=== PATIENT | female | born 1935 | race Caucasian/White ===

== ENCOUNTER 2017-02-12 05:15 | Inpatient (IN) | payer MEDICARE, OTHER ==
[~2017-02-12] VITALS: Ht 152.4 cm; Wt 48.0 kg
--- NOTE | ~2017-02-12 | OR ---
PATIENT'S NAME: JESSY CELIS [facility] AGE: 81 Y [address] 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 PROCEDURE PERFORMED: 1. Right axillary artery cannulation. 2. Cardiopulmonary bypass with resection of ascending aorta and replacement with a 34 tube graft. BRIEF HISTORY: Ms. Celis is an 81-year-old white female with the above-noted diagnosis. She has been brought to the operative suite today emergently for a repair, sterilely prepped and draped in usual fashion for sternotomy. We began with our incision in the right infraclavicular space. We dissected with cautery to the level of the pectoral muscle. The pectoral muscles were in the midline. Right subclavian vein and artery were identified. The right axillary artery was circumferentially dissected and suspended with vessel loops. Heparin was given. The vessel was clamped proximally and distally with DeBakey clamps and opened; an 8 mm [place]-Ankur PTFE graft was then secured to the axillary aorta with a #6 [place]-Ankur suture. We then connected this to the arterial circuit for the cardiopulmonary bypass, this was secured, and a sternal incision was made, the sternum was divided in the midline. A hemopericardium was noted. The pericardium was opened. The fluid was evacuated. No ongoing bleeding was appreciated. The ascending aorta was markedly distended and ecchymotic. We then cannulated the right atrial appendage and proceeded on to cardiopulmonary bypass. Further dissection was carried out on bypass, circumferentially around the aorta, and a cross-clamp was applied. Another cannula had been placed in the right atrium for retrograde cardioplegia. Cardiopulmonary bypass had been initiated, cross- clamp had been applied, retrograde cardioplegia was given, and during this time period, we opened the ascending aorta and excised the dissection and aneurysmal portion. The valve was trileaflet with evidence of mild-to- moderate insufficiency noted on ASUNCION. We sized appropriately and selected 34 graft and secured this, beginning at the proximal portion with 3-0 pledgeted Prolene and Casey felt, re-suspending the valve leaflet commissures. We then PATIENT'S NAME: JESSY CELIS [facility] AGE: 81 Y [address] ROOM: [place] [address] LOCATION: GPCU ADMIT DATE: 02/12/2017 OR/Procedure Report DISCHARGE DATE: 02/19/2017 FAMILY PHYSICIAN: Lisa Wu MD ATTENDING PHYSICIAN: Marcus Leos carried out the same at the distal portion. We removed the crossclamp. It should be noted that retrograde and hand-held antegrade cardioplegia was given during the procedure. Once we came off bypass, there was some bleeding at the very soft portion of the proximal aorta. Cross-clamp was reapplied and this area was repaired and supported with additional Casey felt, both internally and externally. We then removed the cross clamp again and hemostasis was well achieved. We then weaned from cardiopulmonary bypass without difficulty. Hemostasis was further achieved with replacement of blood products as directed by the FAMILIA which had indicated marked coagulopathy and was further evidenced by oozing from most of the mediastinum. Two chest tubes were placed, one posterior pericardial and anterior mediastinal. Copious amounts of antibiotic- infused saline was used to irrigate the sternum and mediastinum. Sternum was approximated with sternal cable system. Soft tissues were irrigated and closed in a layered fashion. All sponge, instrument, and needle counts were correct. DO BECCA WHYTE/modl /[id number] d: 02/27/17905 t: 02/27/17 0945, OPERATIVE SUMMARY
--- NOTE | ~2017-02-12 | OR ---
PATIENT'S NAME: JESSY DIGGS [facility] AGE: 81 Y [address] ROOM: [place] [address] LOCATION: GICU ADMIT DATE: 02/12/2017 OR/Procedure Report DISCHARGE DATE: FAMILY PHYSICIAN: PHYSICIAN, UNKNOWN ATTENDING PHYSICIAN: Marcus Leos SURGEON: Matty Hamm MD ELEVATOR CONSTRUCTOR ELECTRIC: Franko Frazier, Respiratory Therapist. DATE OF PROCEDURE: 02/13/2017 PROCEDURE NAME: 1. Bronchoscopy with therapeutic aspiration of secretions. 2. Bronchoscopy with bronchoalveolar lavage of the right lower lobe. INDICATIONS AND PRE-PROCEDURE DIAGNOSES: 1. Right lower lobe atelectasis. 2. Acute respiratory failure. 3. Dissecting aneurysm status post conduit repair. POST-PROCEDURE DIAGNOSES: 1. Right lower lobe atelectasis. 2. Acute respiratory failure. 3. Dissecting aneurysm status post conduit repair. CONSENT: Consent was obtained from the patient's family after all the indications, risks, benefits, and alternatives were explained at length. The patient was intubated at the time of the procedure. PROCEDURE DESCRIPTION: The patient was in the intensive care unit connected to continuous monitoring devices. The bronchoscope was advanced through the endotracheal tube and the airways were examined. Sedation and analgesia were obtained with administration of IV midazolam and IV fentanyl. FINDINGS: There was a small amount of thick bloody secretion in the distal trachea with small to moderate amount of bloody secretions in the right mainstem bronchus and bronchus intermedius. There was evidence of a large mucus plug with clotted blood in the right lower lobe. This was suctioned aggressively using saline aliquots many times. There was a small amount of secretions in the left lower lobe. There was no evidence of active bleeding or any endobronchial tumors. At the end of the procedure, bronchoalveolar lavage was performed in the right lower lobe, 40 mL of sterile saline were instilled with return of 15 mL of sanguineous bronchoalveolar lavage fluid. The bronchoscope was withdrawn and the patient was returned to the ICU team for further management. PATIENT'S NAME: JESSY DIGGS [facility] AGE: 81 Y [address] ROOM: [place] [address] LOCATION: GICU ADMIT DATE: 02/12/2017 OR/Procedure Report DISCHARGE DATE: FAMILY PHYSICIAN: PHYSICIAN, UNKNOWN ATTENDING PHYSICIAN: Marcus Leos COMPLICATIONS: None. ESTIMATED BLOOD LOSS: None. SPECIMENS: The bronchoalveolar lavage will be sent for microbiology studies. MD FLAVIO BENITEZ/gael /[id number] d: 02/13/17 2358 t: 02/14/17 1004, OPERATIVE SUMMARY
--- NOTE | ~2017-02-12 | DS ---
PATIENT'S NAME: JESSY DIGGS [facility] AGE: 81 Y [address] ROOM: [address] [place], [place] [address] LOCATION: GPCU ADMIT DATE: 02/12/2017 Discharge Summary DISCHARGE DATE: 02/19/2017 FAMILY PHYSICIAN: Lisa Wu MD ATTENDING PHYSICIAN: Marcus Campbell [facility]SE: The patient is an 81-year-old white female, who on February 12, 2017 presented to the emergency department at [facility] in [place] with complaints of ongoing chest pain. Pain had been at a duration of approximately 12 hours. She was found to have an acute ascending aortic dissection as well as pericardial fluid on her CT scan, and therefore she was brought emergently to [facility] via air where she went directly to the operating room upon arrival for a right axillary artery cannulation and cardiopulmonary bypass with a resection of an ascending aorta and replacement with a 34 tube graft. Following the emergent procedure, the patient was transferred to the ICU. She did extubate shortly after the procedure, however, she did have to be reintubated due to acute respiratory failure with new findings of a right lower lobe consolidation. Dr. Hamm was asked to see the patient in consultation with regard to the consolidation. The patient therefore underwent a bronchoscopy with therapeutic aspiration of secretions as well as a bronchoscopy with bronchovesicular lavage of the right lower lobe. The fluids were sent for microbiology studies. They eventually grew out strep pneumoniae and Klebsiella for which the patient was put on the appropriate antibiotics. On postoperative day #2, we were able to extubate. She had no further complications after the removal of the mucus plug. She did remain on a nitroglycerin drip to help maintain lower blood pressures. She was started on oral medications. We did have Speech Therapy see her as well. She did have runs of postoperative atrial fibrillation for which she was started on IV amiodarone. Later, she was switched to p.o. amiodarone. She stabilized. Her chest tubes and Deleon catheter were removed. She did have to go to a nectar thick liquid diet for a short period of time, then did get advanced. The patient did desire transfer to [facility] when she was stable to proceed. She continued to work with PT/OT until that time. She had no healing complications. She had no further issues with ongoing atrial fibrillation. She was found stable on 02/19/2017 to transfer to [facility]. Transfer orders are for deconditioning secondary to surgical intervention with an aortic aneurysm repair. Her secondary diagnoses include an emergent dissection of aortic aneurysm, hypertension, recurrent UTIs, postop pneumonia, osteoarthritis, and a history of tobacco abuse. Dr. Wu will follow the patient. The patient will see Dr. Campbell in 2 weeks for a followup. The patient is now to a regular diet with regular texture. She will be full weightbearing with strict sternal precautions until March 26, 2017. She is to work with PT/OT. She does leave on 2 L of O2, but it may be titrated to off to maintain oxygen saturations at 90%. She may shower. She has no surgical dressings to be changed. PATIENT'S NAME: JESSY DIGGS [facility] AGE: 81 Y [address] ROOM: [place] [address] LOCATION: GPCU ADMIT DATE: 02/12/2017 Discharge Summary DISCHARGE DATE: 02/19/2017 FAMILY PHYSICIAN: Lisa Wu MD ATTENDING PHYSICIAN: Marcus Campbell TRANSFER MEDICATIONS: Include amiodarone 200 mg twice a day, Norvasc 5 mg daily, aspirin 81 mg daily, Lipitor daily, calcium with vitamin D 500 mg daily, vitamin D3 1000 mg daily, vitamin B12 1000 mcg daily, Lovenox 30 mg subcu daily, Pepcid 20 mg daily, Lasix 40 mg daily, Levaquin 750 mg every 48 hours until February 24, 2017, lisinopril 10 mg daily, multivitamin with iron daily, potassium chloride 20 mEq twice a day, DuoNeb 1 puff per inhalation 4 times a day, Tylenol 325 mg 2 tablets q.4 hours p.r.n. pain, [place] 5/325 1-2 every 4-6 hours as needed, Dulcolax suppository 10 mg per rectum p.r.n. constipation, Milk of Mag 30 mL daily p.r.n. constipation, and Prolia 60 mg subcu q.6 months for osteoporosis. FINAL DIAGNOSES: 1. Chronic obstructive pulmonary disease. 2. Ascending aortic aneurysm. 3. Hypertension. 4. Osteoarthritis. 5. Tobacco abuse. 6. Post-op Pneumonia DISPOSITION: The patient was transferred to [facility] in stable condition. VENU LEBRON APRN FOR MARCUS CAMPBELL DO DLQ/modl /[id number] d: 03/07/17 0402 t: 03/07/17 1404, DISCHARGE SUMMARY
--- NOTE | ~2017-02-12 | CON ---
PATIENT'S NAME: JESSY DIGGS [facility] AGE: 81 Y [address] ROOM: [address] [place] [id number] LOCATION: GICU ADMIT DATE: 02/12/2017 Consultation DISCHARGE DATE: FAMILY PHYSICIAN: PHYSICIAN, UNKNOWN ATTENDING PHYSICIAN: Marcus Leos DATE OF CONSULTATION: 02/13/2017 REFERRING PHYSICIAN: MARJAN ROCKWELL MD REASON FOR CONSULTATION: Evaluation and management of a patient with abnormal chest x-ray suggestive of right lower lobe collapse and acute respiratory failure. CHIEF COMPLAINT: Acute respiratory failure. HISTORY OF PRESENT ILLNESS: This is an 81-year-old female with history of hypertension and longstanding tobacco abuse, who was admitted yesterday after she presented with dissecting aortic aneurysm to a local ED. She underwent emergent cardiothoracic surgery at our facility, which was done by Dr. Leos from Cardiothoracic surgery. Subsequently, the patient was extubated around 3:00 p.m. yesterday, however immediately after the extubation, it was noted that she required supplemental oxygen up to 10 L/minute. Her hypoxia continued to worsen and she was subsequently reintubated for hypercapnia. According to the respiratory therapist who was present during intubation, the patient had a large amount of bloody secretions suctioned after intubation. She was started on mechanical ventilation in assist control mode with a tidal volume of 400, respiratory rate of 15, 100% FiO2, and a PEEP of 5. Subsequently, her FiO2 requirements decreased to 40%. Today, a followup chest x-ray was obtained and that showed right lower lobe and possible right middle lobe consolidation and atelectasis. I personally reviewed the images with Dr. Leos. There was also evidence of vascular congestion in both lungs. Because of these new findings on the chest x-ray, I was asked by Dr. Leos to evaluate the patient for possible bronchoscopy. At the time of my evaluation, the patient was intubated, but not on any sedation medications. She was able to nod appropriately to some of my questions. She particularly complained of discomfort associated with the endotracheal tube and she had chest pain at the incision site. She did not feel particularly short of breath. PAST MEDICAL HISTORY: 1. Hypertension. 2. Arthritis. PAST SURGICAL HISTORY: PATIENT'S NAME: JESSY DIGGS [facility] AGE: 81 Y [address] ROOM: [id number] [place], [place] [address] LOCATION: GICU ADMIT DATE: 02/12/2017 Consultation DISCHARGE DATE: FAMILY PHYSICIAN: PHYSICIAN, UNKNOWN ATTENDING PHYSICIAN: Marcus Leos 1. Hernia. 2. Hysterectomy. 3. Cardiothoracic surgery for dissecting ascending aorta aneurysm with conduit repair, which was done yesterday. FAMILY HISTORY: A daughter had brain, breast and ovary cancer. A sister had leukemia and her father had coronary artery disease. SOCIAL HISTORY: She has been smoking half a pack per day for 50 years. There is no history of alcohol or illicit drug abuse. She has good social support. CURRENT MEDICATIONS: Reviewed as per chart. She was on nitro drip, but not on any sedation medications. REVIEW OF SYSTEMS: Pertinent positives and negatives as per history of present illness. A complete review of systems could not be obtained because of the patient's clinical status, as she was intubated. PHYSICAL EXAMINATION: VITAL SIGNS: Temperature was 98.8, heart rate was 80, respiratory rate was 16, blood pressure was 120/52, oxygen saturation 93% on 40% FiO2 and PEEP of 5. Weight 48.5 kg, height 5 feet with a BMI of 20.8. GENERAL: She is a frail elderly female, sitting up in bed, intubated, with a sedation analgesia score of 4. HEENT: Atraumatic head. PERRLA. Anicteric sclerae. Moist oral mucosa. NECK: Supple. No JVD. No LAD. Trachea midline. No thyromegaly. RESPIRATORY: She had decreased breath sounds at the right lung base with scattered rhonchi over both lung areas. CARDIOVASCULAR: Regular rhythm and rate with a 2/6 systolic murmur along the left lower sternal border. ABDOMEN: Soft, nontender, and nondistended. Bowel sounds were diminished, but present. EXTREMITIES: No lower extremity edema. No cyanosis and no clubbing. Pulses were +1 bilaterally in the distal areas. NEURO: She was able to follow simple commands. LABORATORY DATA: Pertinent data as per history of present illness. BMP from earlier today was essentially normal. CBC revealed WBC of 8.2, hemoglobin of 8.1, hematocrit of 24.3, and platelets were 72. Arterial blood gas revealed a pH of 7.47, pCO2 of 43, pO2 of 70 with a base excess of 6.8. Prior to intubation yesterday, her PATIENT'S NAME: JESSY DIGGS [facility] AGE: 81 Y [address] ROOM: [address] [place] [address] LOCATION: [facility] ADMIT DATE: 02/12/2017 Consultation DISCHARGE DATE: FAMILY PHYSICIAN: PHYSICIAN, UNKNOWN ATTENDING PHYSICIAN: Marcus Leos ABG showed pH of 7.16, pCO2 of 77, pO2 of 84 while on 100% FiO2. I performed a bedside ultrasound that revealed minimal bilateral pleural effusions without any loculations. However, she had evidence of dense right lower lobe consolidation. ASSESSMENT: 1. Right lower lobe consolidation and atelectasis. This can be due to a mucus plug. She does not have evidence of a large pleural effusion that would be a confounding factor for the appearance on the chest x-ray. 2. Acute respiratory failure. This is multifactorial after major cardiothoracic surgery with possible atelectasis due to mucus plug. 3. Ascending aorta dissecting aneurysm. She is status post conduit repair with stable cardiac status. 4. Anemia. This is postoperative and moderate. PLAN: 1. I will proceed with diagnostic and therapeutic bronchoscopy. I will discuss with the family the benefits, risks and alternatives to this. I strongly believe that the therapeutic bronchoscopy with removal of the mucus plug would facilitate easier extubation. 2. She can have a spontaneous breathing trial later today after the bronchoscopy. 3. Follow up Cardiothoracic surgery team's recommendations. 4. Followup CBC. The current assessment and plan was discussed with the patient and Dr. Leos. I would like to thank you, Dr. Leos, for giving me the opportunity to participate in this patient's care. MD FLAVIO BENITEZ/gael /[id number] d: 02/14/17 0101 t: 02/14/17 1002, CONSULTATION REPORT
--- NOTE | ~2017-02-12 | HP ---
PATIENT'S NAME: JESSY CELIS [facility] AGE: 81 Y [address] ROOM: [place] [address] LOCATION: GPCU ADMIT DATE: 02/12/2017 History & Physical DISCHARGE DATE: 02/19/2017 FAMILY PHYSICIAN: Lisa Wu MD ATTENDING PHYSICIAN: Marcus Leos DATE OF SERVICE: ADMITTING DIAGNOSIS: Aortic dissection. HISTORY: Mrs. Celis is an 81-year-old white female, who presented to her local emergency department with complaints of chest pain for the past 10-12 hours. She was ruled in for acute ascending aortic dissection with pericardial fluid noted on CAT scan. She [facility]. PAST MEDICAL HISTORY: Significant for COPD and ascending aortic aneurysm. Also, significant for hypertension and arthritis. PAST SURGICAL HISTORY: Significant for herniorrhaphy and hysterectomy. FAMILY HISTORY: Significant for cancer in her daughter, a sister with leukemia, and father with coronary artery disease. SOCIAL HISTORY: She is a long-term smoker, 10-qwcf-help half pack a day for 50 years. CURRENT MEDICATIONS: Unknown at this time. REVIEW OF SYSTEMS: As per the history of chief complaint, otherwise not obtainable. PHYSICAL EXAMINATION: GENERAL: Limited secondary to being brought right to the operative suite, but she has no evidence of obvious trauma. VITAL SIGNS: Stable. ABDOMEN: She is nondistended. EXTREMITIES: Her pulses are equal bilaterally. PATIENT'S NAME: JESSY CELIS [facility] AGE: 81 Y [address] ROOM: [place] [address] LOCATION: GPCU ADMIT DATE: 02/12/2017 History & Physical DISCHARGE DATE: 02/19/2017 FAMILY PHYSICIAN: Lisa Wu MD ATTENDING PHYSICIAN: Marcus Leos IMPRESSION: Acute aortic dissection of the ascending aorta with pericardial effusion. PLAN: She will be taken emergently for aortic repair. DO BECCA WHYTE/gael /[id number] D: [id number] T: [id number] HISTORY & PHYSICAL
[2017-02-12 10:28] LABS: BASOPHIL % 0.1 %; HEMATOCRIT 22.2 % (30.0-46.0); IMMATURE GRANULOCYTE # 0.1 K/uL (0.0-0.3); IMMATURE GRANULOCYTE % 0.7 %; LYMPHOCYTE # 0.8 K/uL (0.8-4.0); LYMPHOCYTE % 6.6 %; MCH 30.8 pg (27.0-34.0); MCHC 32.9 gm/dL (32.0-36.5); MCV 93.7 fl (83.0-98.0); MONOCYTE # 0.9 K/uL (0.0-1.0); MONOCYTE % 7.1 %; MPV 9.5 fl (9.4-12.4); NEUTROPHIL # (ANC) 10.8 K/uL (1.8-7.8); NEUTROPHIL % 85.5 %; NRBC % 0 /100WBC (0-0.00); RBC 2.37 M/uL (3.00-5.00); RDW-CV 13.2 % (11.9-14.6); WBC 12.7 K/uL (4.0-11.0)
[2017-02-12 10:30] LABS: HEMOGLOBIN 7.3 g/dL (10.0-15.0); PLATELET COUNT 96 K/uL (150-450); PROTIME 14.5 SECONDS (9.8-11.4)
[2017-02-12 10:33] LABS: INR - (THERAPEUTIC) 1.38 (0.92-1.07); PTT 48 SECONDS (25-32)
[2017-02-12 11:17] LABS: ALPHA ANGLE 67 degrees (70-81)
[2017-02-12 11:18] LABS: CLOTTING TIME 65 seconds (43-82); MAXIMUM CLOT FIRMNESS 52 mm (51-72)
[2017-02-12 11:34] LABS: BICARBONATE 26.4 mmol/L (18.0-23.0); PCO2 55 mmHg (35-45); PO2 101 mmHg (80-90)
[2017-02-12 11:45] LABS: CREATININE 1.1 mg/dL (0.5-1.1)
[2017-02-12 11:48] LABS: CALCIUM 7.4 mg/dL (8.5-10.5)
[2017-02-12 14:09] LABS: BICARBONATE 23.5 mmol/L (18.0-23.0); PCO2 51 mmHg (35-45); PO2 407 mmHg (80-90); POTASSIUM 4.2 mEq/L (3.7-5.1); SODIUM 139 mEq/L (135-145)
[2017-02-12 14:10] LABS: BICARBONATE 27.8 mmol/L (18.0-23.0); PCO2 49 mmHg (35-45); PO2 271 mmHg (80-90)
[2017-02-12 14:11] LABS: POTASSIUM 3.8 mEq/L (3.7-5.1); SODIUM 140 mEq/L (135-145)
[2017-02-12 14:14] LABS: BICARBONATE 24.2 mmol/L (18.0-23.0); PCO2 40 mmHg (35-45); PO2 245 mmHg (80-90); SODIUM 139 mEq/L (135-145)
[2017-02-12 14:15] LABS: POTASSIUM 4.8 mEq/L (3.7-5.1)
[2017-02-12 14:16] LABS: BICARBONATE 26.1 mmol/L (18.0-23.0); PCO2 46 mmHg (35-45); PO2 259 mmHg (80-90); POTASSIUM 4.8 mEq/L (3.7-5.1); SODIUM 141 mEq/L (135-145)
[2017-02-12 14:17] LABS: BICARBONATE 22.1 mmol/L (18.0-23.0); PCO2 45 mmHg (35-45); PO2 278 mmHg (80-90); POTASSIUM 5.1 mEq/L (3.7-5.1); SODIUM 141 mEq/L (135-145)
[2017-02-12 14:18] LABS: BICARBONATE 25.2 mmol/L (18.0-23.0); PCO2 50 mmHg (35-45); PO2 326 mmHg (80-90); POTASSIUM 4.1 mEq/L (3.7-5.1); SODIUM 142 mEq/L (135-145)
[2017-02-12] MEDS ORDERED: PRINIVIL OR ZES10 MG PO (14:33)
[2017-02-12 16:37] LABS: BICARBONATE 27.4 mmol/L (18.0-23.0); PO2 84 mmHg (80-90)
--- NOTE | 2017-02-12 16:42 | NUR ---
Significant Event: RESP: Patient extubated at 1536 to 3L NC. At 1550, 8L simple mask. When given a breathing treatment at 1600, patient desaturated to 80s. RT and RN bagged patient and Dr. Leos reintubated at 1620. FiO2 80%, PEEP 5. TV 450. CARDIO: Nitroglycerin at 100 mcg/min to keep SBP 90-120. Amiodarone at 0.5 mg/min. Temp 98.6. CI 2.3. SVR 1633. 500 ml 5% Albumin given x 2. [address] 300 ml out. : Urine output 50-70 ml/hr. Follow up: ABG at 1745.
[2017-02-12 16:47] LABS: HEMATOCRIT 30.8 % (30.0-46.0); PCO2 77 mmHg (35-45)
--- NOTE | 2017-02-12 17:49 | NUR ---
D: AORTIC DISSECTION I: VENT, MDI R: PT WAS TOLERATING CPAP WELL & FOLLOWING COMMANDS BUT WAS A LITTLE SLEEPY, EXTUBATED PT @ 15:36 TO A 4 LPM NC & HAD TO GO UP TO A 10 LPM S.M. AFTER A FEW MINUTES, PT DID HAVE SAT'S IN HIGH 90'S ON 8 LPM S.M. STARTED BREATHING TX'S ON PT JUST BEFORE 16:00, PT DID NOT SEEM TO TOLERATE TX'S WELL, SHE BECAME MORE LETHARGIC & HER AIRWAY BEGAN TO COLLAPSE, BP ALSO DROPPED & SAT'S DROPPED INTO 60'S, GRABBED AMBU BAG & BEGAN BAGGING PT, WAS ABLE TO GET SAT'S BACK UP TO 88-90% AFTER A FEW MINUTES, DR CAMPBELL SHOWED UP & I REINTUBATED PT AROUND 16:25, USED #3 BLADE ON GLIDESCOPE W/O COMPLICATION, PT HAS 7.5 ETT SECURED @ 20 @ LIP W/ ETAD, INITIAL VENT SETTINGS PRIOR TO EXTUBATION WERE SIMV 11, VT 500, P5, PS 10, VENT SETTINGS AFTER REINTUBATION WERE AC 14, VT 450, P5, PT IS CURRENTLY ON 80% FIO2 P: CONT TO WEAN FIO2 TOLERATES
[2017-02-12 18:29] LABS: BICARBONATE 27.9 mmol/L (18.0-23.0); PCO2 45 mmHg (35-45); PO2 108 mmHg (80-90)
--- NOTE | 2017-02-13 04:07 | NUR ---
No changes to vent settings t/o shift, continued in A/C mode, decreased Fio2 to 40% to maintain sats>90%. Sxn moderate-large bloody to start shift, decreased to scant-small blood-tinged. Lung sounds clear/diminished post sxn. CPAP trial this AM and possible extubation.
[2017-02-13 04:30] LABS: BICARBONATE 31.3 mmol/L (18.0-23.0); PCO2 43 mmHg (35-45)
[2017-02-13 04:33] LABS: PO2 70 mmHg (80-90)
[2017-02-13 04:43] LABS: BLOOD UREA NITROGEN 20 mg/dL (6-24); CALCIUM 9.5 mg/dL (8.5-10.5); CHLORIDE 110 mMol/L (96-110); CO2 30 mMol/L (22-32); CREATININE 0.8 mg/dL (0.5-1.1); SODIUM 145 mMol/L (135-145)
[2017-02-13 04:44] LABS: ESTIMATED GFR (MDRD EQUATION) > 60
[2017-02-13 04:46] LABS: HEMOGLOBIN 8.1 g/dL (10.0-15.0); MCH 30.2 pg (27.0-34.0); MCV 90.7 fl (83.0-98.0); MPV 11.2 fl (9.4-12.4); RBC 2.68 M/uL (3.00-5.00); RDW-CV 13.5 % (11.9-14.6); WBC 8.2 K/uL (4.0-11.0)
[2017-02-13 04:47] LABS: HEMATOCRIT 24.3 % (30.0-46.0); MCHC 33.3 gm/dL (32.0-36.5)
--- NOTE | 2017-02-13 05:46 | NUR ---
Significant Event: CONTINUES WITHOUT SEDATION. AWAKENS TO VOICE EASILY. FOLLOWS COMMANDS. A PACED AT 80 THIS SHIFT. TITRATING NITRO GTT FOR SBP 90-120, CURRENTLY AT 90MCG/MIN. AFEBRILE. CONTINUES ON VENT AC 14/450/40%/5. OVERBREATHES AT TIMES. ETCO2 33-40. CTX3 WITH 480 OUT THIS SHIFT. CHAVEZ WITH GOOD UOP. NO BM. OGT TO LIS. RIGHT IJ INTRODUCER. INSULIN GTT ON DELAY FOR LOW BLOOD SUGAR. D5LR AT 20. AMIO GTT PER PROTOCOL. BICARB GTT PER PROTOCOL. REPLACING 40 MEQ KCL PER SLIDING SCALE. LEFT RADIAL ARTLINE. PIV X2 Follow up: EXTUBATE TODAY?
[2017-02-13] MEDS ORDERED: VITAMIN D-32000 UNI1 PO (12:19)
[2017-02-13] MEDS ORDERED: VITAMIN B-121000 MCG PO (12:19)
[2017-02-13] MEDS ORDERED: CRANBERRY TABL1 EACH PO (12:20)
[2017-02-13] MEDS ORDERED: CHEWABLE-VITE1 EACH PO (12:21)
[2017-02-13] MEDS ORDERED: CALCIUM 500-VI1 EACH PO (12:21)
[2017-02-13] MEDS ORDERED: PROLIA60 MG/ML SUB-Q (12:24)
--- NOTE | 2017-02-13 16:14 | NUR ---
Significant Event: AAOx3, follows command to all extremities. Pupils 3mm brisk. HR 79-81, APaced, MA 15 senstivity 0.5 SBP 100-130's, to keep SBP 90-120, absent edema, weak pedal pulses. CI 2.2-2.7, CO 3.5-4.2, SVR [phone]. L.S. slightly coarse throughout, extubated at 1630 on 6L via [place]. clears blood-tinged secretions with coughing, suctioned frequently. B.S. rare, no BM since admisison. Deleon catheter intact draining millie urine 30-60mL Qhr. R) forearm PIV SL'd, R) AC SL'd. R) IJ quad lumen infusing Nitroglycerine at 35mg/min and NaCl at 20mL/hr. Bronchoscopy performed by Dr. Hamm, gave 4mg Versed and 100mcg Fentanyl during procedure, became hypotensive and bolus'd Albumin 5% 500cc, SBP now 100-130's. Follow up: Continue to monitor. Advance diet in future?
--- NOTE | 2017-02-13 18:07 | NUR ---
D: DISSECTING ANEURYSM I: ALB/EZPAP, IS/FV R: EXTUBATED PT @ 16:30 TO A 4 LPM NC, HAD TO INCREASED UP TO 7 LPM SM, PT IS A MOUTH BREATHER, TOLERATING WELL P: CONT TO WEAN O2 TOLERATES
[2017-02-14 04:50] LABS: HEMATOCRIT 24.8 % (30.0-46.0); HEMOGLOBIN 8.3 g/dL (10.0-15.0); MCH 30.7 pg (27.0-34.0); MCHC 33.5 gm/dL (32.0-36.5); MCV 91.9 fl (83.0-98.0); RBC 2.7 M/uL (3.00-5.00); RDW-CV 13.6 % (11.9-14.6); WBC 9.5 K/uL (4.0-11.0)
[2017-02-14 05:05] LABS: BLOOD UREA NITROGEN 16 mg/dL (6-24); CALCIUM 8.5 mg/dL (8.5-10.5); CHLORIDE 98 mMol/L (96-110); CO2 32 mMol/L (22-32); CREATININE 0.8 mg/dL (0.5-1.1); ESTIMATED GFR (MDRD EQUATION) > 60; POTASSIUM 3.8 mMol/L (3.7-5.1)
[2017-02-14 05:08] LABS: ANION GAP 8.8 (10.0-19.0); SODIUM 135 mMol/L (135-145)
--- NOTE | 2017-02-14 05:37 | NUR ---
Significant Event: PATIENT ALERT AND ORIENTED. FOLLOWS ALL COMMANDS. MOVES ALL EXTREMITIES SPONTANEOUSLY. AFEBRILE. CONTINUES TO BE A PACED AT 80. ON NITRO GTT TITRATING PER CUFF PRESSURE FOR SBP < OR = TO 130. CURRENTLY AT 35MCG/MIN. TITRATED TO 4L PER NASAL CANNULA. CHEST TUBE X3 WITH SEROSANG DRAINAGE. CHAVEZ WITH GREAT URINE OUTPUT POST BUMEX. NO BM. PIV X2 AND RIGHT IJ. DC'D ARTLINE. Follow up: TRANSFER?
--- NOTE | 2017-02-14 08:15 | NUR ---
ROUTINE CONSULT FOR DIET ED POST CARDIO-THORACIC SURGERY NOTED. PT ON REGULAR DIET AND DIET ED NOT NECESSARY. WILL FOLLOW.
--- NOTE | 2017-02-14 13:00 | NUR ---
Introduced self and role of care management to patient. She lives in [place] with her son in law and her granddaughter. She doesn't use a walker at home or O2. Says her PATY is a cake press operator so on the road a lot but granddaughter is there all the time. Says the granddaugther is 31 so able to help her when she wants to. Talked to her briefly about HHC and SB. Will see how she does with therapy but may need skilled stay before going home. Will follow.
--- NOTE | 2017-02-14 17:47 | NUR ---
Significant Event: Patient is 2 assist with walker when she gets up. She was up to the chair twice and walked in the room a little. She needs reminding of sternal percautions. She is currently on Nitroglycerin 10mcg/min and will be weaned off hopefully soon. After Lasix her urine output was great. She has taken some bites of meals throughout the day, but does not have much of an appetite yet. She has not had a BM since surgery. O2 was weaned to 1L and she is tolerating well. Follow up: Transfer to PCU
--- NOTE | 2017-02-15 05:19 | NUR ---
Significant Event: PATIENT IS A/O, DENIES PAIN, NUMBNESS OR TINGLING. R) PIV WITH NITRO GTT RUNNING AT 10MCG/MIN TITRATED TO KEEP SBP <130. LS CLEAR, LOOSE PROD COUGH, SPO2 >90% ON 1L O2 VIA NC. CHAVEZ DRAINS CLEAR YELLOW. HEART HUGGER ON. SURGICAL INCISIONS WITH DRSGS ALL CDI. AFEBRILE, VSS. Follow up: WEAN OFF NITRO GTT, TRANSFER TO LOWER LEVEL CARE
--- NOTE | 2017-02-15 13:06 | NUR ---
A-NUTRITION F/U EXTUBATED. (+)BS; NO BM SINCE ADMIT LABS REVIEWED MEDS: OSCAL+D, VIT D, VIT B12, ZESTRIL, MVI, PEPCID, LASIC, LEVAQUIN DIET RX: REGULAR W/2000 ML FLUID RESTRICTION. PO INTAKE HAS BEEN POOR SINCE ORAL DIET STARTED. EST NUTR NEEDS: [id number] KCALS AND 48-73 GM PROTEIN D-AT NUTRITION RISK W/INADEQUATE ORAL INTAKE R/T ALTERED APPETITE AEB INTAKE RECORDS I-START ENSURE ENLIVE TID M/E-GOAL: PO INTAKE >/=50% BY DISCHARGE 1)F/U PO INTAKE, SUPPLEMENT TOLERANCE, AND POC IN 4-5 DAYS 2)ASSIST NEEDED
--- NOTE | 2017-02-15 13:47 | NUR ---
Significant Event:PT IS AAOX3. FOLLOWS COMMANDS WELL. [place]. UP WITH 2A PIVOT. NORVASC STARTED TODAY. NITRO GTT OFF AT 1132. LUNG SOUNDS COARSE. THICK CLEAR SPUTUM. ON 1L NC. STILL HAS CHEST TUBE WITH BULB COMPRESSION DRAINING. CHAVEZ DRAINING.TO KEEP FOR ONE MORE DAY. DECREASE APPETITE. DRSG TO STERNUM. PIV X2 SL'D. ACHS ACCU CHECKS. NO C/O PAIN Follow up:MONITOR BP AND PULSE.
--- NOTE | 2017-02-15 16:43 | NUR ---
Spoke with patient's nurse and she is a 2 assist. Talked with patient, her PATY Elmore and his sister. Talked about skilled care and she may need skilled care before being able to go home. Reviewed with them options in [place]. 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 Dr. Rojo is her PCP. PATY says her son Aren is the POA and he will update him. Think it will be next week before ready but told them will check to see if they have beds and put her on the list. VMM left for SS/adm at [facility]. Will follow.
[2017-02-15 23:16] LABS: MAGNESIUM 1.9 mg/dL (1.8-2.6); POTASSIUM 3.8 mMol/L (3.7-5.1)
--- NOTE | 2017-02-16 05:13 | NUR ---
Significant Event: PATIENT IS A/O X3 BUT FORGETFUL. VSS. HR 100-110'S IN AFIB. SBP 100'S. AFEBRILE. 02 SATS IN MID 90'S ON 2L 02 PER NC. C/O CHRONIC BACK PAIN. 1 TAB NORCO GIVEN X1 WITH SOME RELIEF. LUNGS SLIGHTLY COARSE THROUGHOUT. HAS MEDIASTINAL BULB DRAIN WITH 60 ML SEROUS DRAINAGE. UP WITH 2A STAND/PIVOT. BOWELS ACTIVE. NO BM SINCE THE . CHAVEZ INTACT WITH 350ML UOP. STERNAL INCISION CLOSED AND MEPILEX DRESSING COVERED. DRESSING HAS MODERATE AMOUNT OF SEROUSANGINOUS DRAINAGE. RIGHT IJ DRESSING AND RIGHT SUBCLAVIAN DRESSING FROM OLD CHEST TUBE SITE BOTH C/D/I. RIGHT TO LEFT AC WITH AMIODARONE RUNNING AND LEFT AC SL. Follow up: CONTINUE TO MONITOR PER PLAN OF CARE.
--- NOTE | 2017-02-16 13:06 | NUR ---
Message this a.m. from Coleen at [facility] and they do have beds and they will consider here. Attempted to call Coleen but unavailable so left [facility]. Information faxed to [facility]. Talked to patient, PATY and granddaughter. Updated them on the information from [facility] and that referral sent. PATY says he talked to her son Aren last night and updated him and he is in agreement with the plans. He says Aren and Blossom should be back in the area this weekend and PATY is leaving on Sunday to go on the truck. Will follow.
--- NOTE | 2017-02-16 18:55 | NUR ---
PATIENT HAS BEEN UP IN THE CHAIR TWICE TODAY. SHE HAD A SWALLOW STUDY AND NEEDS TO ADD THICKENER TO HER LIQUIDS AND SHOULD NOT USE A STRAW. PATIENT SEEMS TO HAVE DIFFICULTY BREATHING BECAUSE SHE REFUSES TO TAKE OUT HER DENTURES AND SHE IS A MOUTH BREATHER SO IT IMPEDS HER O2 SATS. SHE HAS ONLY COMPLAINED OF PAIN ONCE TODAY AFTER CHEST DRESSINGS WERE REMOVED. PATIENT DID HAVE A FEW MINUTES OF BRADICARDIA DROPPING DOWN TO 49 AND THEN BACK TO NSR. NO ISSUES WITH HER CHAVEZ AND NO BOWEL MOVEMENT. NO INSULIN NEEDED TODAY.
--- NOTE | 2017-02-17 04:37 | NUR ---
Significant Event: PATIENT IS A/O X3 BUT FOREGETFUL. VSS. HR 40-60'S BETWEEN JUNCTIONAL AND SINUS ALEENA. SBP 90-130'S. AFEBRILE. 02 SATS IN MID TO UPPER 90'S ON 1L 02 PER NC. C/O BACK BACK. 1 TAB NORCO GIVEN X1 WITH RELIEF. LUNGS CLEAR/DIM TO DIM. MEDIASTINAL BULB DRAIN INTACT WITH 40 ML SEROUS DRAIANGE. UP WITH 2A WITH WALKER/GB AND HEART HUGGER/STERNAL PRECAUTIONS. PATIENT HAS SLOW SHUFFLING GAIT AND NEEDS VERBAL CUES TO MOVE. BOWELS ACTIVE. APPETITE DECREASED AND NO BM SINCE THE . PATIENT NEEDS ENCOURGEMENT TO EAT BUT HAS DIFFICULTY SWOLLOWING. PILLS CRUSHED IN APPLESAUCE AND ON NECTAR THICKENED LIQUIDS. CHAVEZ INTACT WITH MARGINAL UOP AND MINIMAL INTACT. STERNAL INCISION, RIGHT NECK, AND RIGHT SUBCLAVIAN ALL OPEN TO AIR. IV TO RIGHT FOREARM AND LEFT AC SL. ON ACHS ACCUCHECKS. Follow up: CONTINUE TO MONITOR PER PLAN OF CARE.
[2017-02-17 04:59] LABS: BASOPHIL % 0.3 %; EOSINOPHIL # 0.1 K/uL (0.0-0.5); EOSINOPHIL % 1.3 %; HEMATOCRIT 30.4 % (30.0-46.0); HEMOGLOBIN 9.8 g/dL (10.0-15.0); IMMATURE GRANULOCYTE # 0.1 K/uL (0.0-0.3); IMMATURE GRANULOCYTE % 1.5 %; LYMPHOCYTE # 0.7 K/uL (0.8-4.0); LYMPHOCYTE % 9.3 %; MCHC 32.2 gm/dL (32.0-36.5); MONOCYTE # 0.8 K/uL (0.0-1.0); MONOCYTE % 10.6 %; MPV 9.3 fl (9.4-12.4); NEUTROPHIL # (ANC) 6.1 K/uL (1.8-7.8); NRBC % 0 /100WBC (0-0.00); RBC 3.27 M/uL (3.00-5.00); RDW-CV 13.2 % (11.9-14.6)
[2017-02-17 05:05] LABS: PLATELET COUNT 189 K/uL (150-450)
[2017-02-17 05:17] LABS: ALBUMIN 2.8 gm/dL (3.5-5.0); ALK PHOS 48 IU/L (33-138); ANION GAP 8.5 (10.0-19.0); AST 23 IU/L (10-40); BLOOD UREA NITROGEN 23 mg/dL (6-24); CALCIUM 9.2 mg/dL (8.5-10.5); CHLORIDE 102 mMol/L (96-110); CO2 32 mMol/L (22-32); CREATININE 0.9 mg/dL (0.5-1.1); MAGNESIUM 2.1 mg/dL (1.8-2.6); POTASSIUM 4.5 mMol/L (3.7-5.1); SODIUM 138 mMol/L (135-145); TOTAL BILIRUBIN 0.9 mg/dL (0.0-1.5); TOTAL PROTEIN 5.7 g/dL (6.0-8.4)
[2017-02-17 05:18] LABS: ALT < 10 IU/L (12-78)
--- NOTE | 2017-02-17 14:22 | NUR ---
Significant Event:A/O X 3, Impulsive and forgetful. Restless at times. Ambulates with 1 assist, gait belt and wheeled walker. UP to recliner for all meals. Sinus edgard. Remains on 1L/nc, slighlty coarse lungs at times, clears with cough, needs reminders to take her time to swallow. Takes meds crushed with pudding. Poor appetite, refuses Ensure. Dentures do not fit well. Pancho ALEXANDER'd at noon. Dr Leos here to CATHERINE Sal drain and applied fresh dressing. Bathed and wearing an incontinent garment. No post void yet. Reports no pain. Follow up:Plans to go back home with daughter and son in law where she was previously living.
--- NOTE | 2017-02-18 04:47 | NUR ---
Patient alert and oriented. Transfers 2A Pivot. Sternal precautions/heart hugger. On 2L of O2. Coarse lungs sounds at times with loose cough. Bradycardic. Takes meds crushed in pudding. [place] thick liquids. Needs good oral cares done, dentures do not fit the best. Voiding well after catheter removal. Denies pain. Cooperative with cares.
--- NOTE | 2017-02-18 16:57 | NUR ---
Significant Event:A/O X 3, Forgetul, impulsive. Ambulates with 1 assist, gait belt and walker, walked in hwang x 2 today. UP in chair for meals. Showered and shampooed. SB. Lungs slightly coarse, wears O2 2L/NC. Needs fed, or assisted to eat. Dentures too big for her mouth, will order soft diet to encourage intake. Hard pebbly stool today. MOM given per patient request, "I think there is lots more, but I need some help". Reports no pain. Redness to L) illiac crest improving, but still putting moisture barrier on with all position changes and transfers. Family is supportive of discharge plans and are updated. Follow up:Plans for [facility] in the AM?
--- NOTE | 2017-02-19 04:17 | NUR ---
Significant Event: Patient A/Ox3. VSS on 2L NC. Up 1-assist to bathroom with walker, gait belt, and heart hugger. Patient does need reminded of sternal precautions. Very hard of hearing. Patient is to have nectar thickened liquids, but does try to convince staff that she can have thin liquids. Pills taken crushed in pudding. Follow up: Transfer to [facility] in [place]
[2017-02-19 05:44] LABS: HEMATOCRIT 30.3 % (30.0-46.0); HEMOGLOBIN 9.6 g/dL (10.0-15.0); MCH 30.3 pg (27.0-34.0); MCHC 31.7 gm/dL (32.0-36.5); MCV 95.6 fl (83.0-98.0); MPV 9.4 fl (9.4-12.4); RBC 3.17 M/uL (3.00-5.00); RDW-CV 13.4 % (11.9-14.6); WBC 7.9 K/uL (4.0-11.0)
[2017-02-19 05:56] LABS: PLATELET COUNT 289 K/uL (150-450)
[2017-02-19 06:03] LABS: ALBUMIN 2.7 gm/dL (3.5-5.0); ALK PHOS 51 IU/L (33-138); ANION GAP 7.5 (10.0-19.0); AST 22 IU/L (10-40); BLOOD UREA NITROGEN 19 mg/dL (6-24); CALCIUM 8.9 mg/dL (8.5-10.5); CHLORIDE 105 mMol/L (96-110); CO2 32 mMol/L (22-32); CREATININE 0.8 mg/dL (0.5-1.1); MAGNESIUM 2.1 mg/dL (1.8-2.6); POTASSIUM 4.5 mMol/L (3.7-5.1); SODIUM 140 mMol/L (135-145); TOTAL PROTEIN 5.8 g/dL (6.0-8.4)
[2017-02-19 06:07] LABS: ALT < 10 IU/L (12-78); TOTAL BILIRUBIN 0.7 mg/dL (0.0-1.5)
[2017-02-19 06:57] LABS: ABSOLUTE NEUTROPHIL CT (ANC) 6.1 K/uL (1.8-7.8); BANDED NEUTROPHIL # 0.5 K/uL (0.0-0.1); BANDED NEUTROPHILS % 6 %; LYMPHOCYTE # 1.1 K/uL (0.8-4.0); LYMPHOCYTE % 14 %; MONOCYTE # 0.6 K/uL (0.0-1.0); SEGMENTED NEUTROPHIL # 5.6 K/uL (1.8-7.8); SEGMENTED NEUTROPHIL % 71 %
--- NOTE | 2017-02-19 13:30 | NUR ---
Patient can transfer to [facility] today. Several phone calls today with Dorothy at [facility] and requsted information faxed. Talked to patient's son/KEVAN Younger and discussed plans and process. He is in agreeent with plan. They can accept patient today but do not have transportation. She says their van is in [place] but no room for patient but they will leave an O2 tank for transport. Orders faxed. Talked to patient and she says her family all have trucks, but can call Aren and see what he thinks. Called Aren and he says he will get his daughter in law to come and pick her up and she has a car. Nurse will call nurse to nurse report. Patient to transfer to [facility] in [place] for skilled care today via private vehicle.
--- NOTE | 2017-02-19 16:18 | NUR ---
SIGNIFICANT EVENT/DISCHARGE NOTE/SHIFT SUMMARY: PATIENT ROSETTA, ORIENTED X3. FOLLOWS ALL COMMANDS. PATIENT DENIES ANY NUMBNESS, TINGLING, OR PAIN. PATIENT HAS BEEN IN JUNCTIONAL RHYTHM, ALEENA AT TIMES, HR 50-60S. BP STABLE, SBP 90-110S, MAP>65. PULSES PALPABLE THROUGHOUT. AFEBRILE. BOWEL SOUNDS PRESENT, NO BM TODAY. NO NEW SKIN ISSUES NOTED. IV DISCONTINUED PRIOR TO DISCHARGE. FAMILY CAME TO PICK PATIENT UP. PATIENT DISCHARGED WHILE ON 2 L NASAL CANNULA, VITALS STABLE UPON DISCHARGE. NO CONCERNS VOICED. PATIENT ACCOMPANIED BY RN AND WHEEL CHAIR TO PERSONAL VEHICLE WHERE 2 NEICES PICKED PATIENT UP. ALL FOLLOW UP INSTRUCTIONS AND DISCHARGE EDUCATION REVIED AND SENT WITH PATIENT
== END 2017-02-19 14:45 | DRG 264 ==
LOC: GICU 05:15 → GPCU 05:51 → GICU 02-14 07:30 → GPCU 02-16 00:14
PROVIDERS: ADMIT Thoracic Surgery (Cardiothoracic Vascular Surgery)
DX: I71.01 Dissection of thoracic aorta (principal); J96.00 Acute respiratory failure, unspecified whether with hypoxia or hypercapnia; J95.89 Other postprocedural complications and disorders of respiratory system, not elsewhere classified; J98.11 Atelectasis; D64.9 Anemia, unspecified; I10 Essential (primary) hypertension; M19.90 Unspecified osteoarthritis, unspecified site; Z87.891 Personal history of nicotine dependence; Z87.440 Personal history of urinary (tract) infections
CPT/HCPCS: C1769; C1781; J0282; J0690; J1644; J1650; J1956; J2150; J2250; J2270; J2720; J3010; J3370; J3475; J3480; J3490; J7040; J7050; J7060; J7121; L8670; P9012; P9016; P9017; P9035; P9045; P9047